=== PATIENT | female | born 1990 | race Caucasian/White ===

== ENCOUNTER 2018-05-02 22:30 | Emergency (ER) | payer SELFPAY ==
[~2018-05-02] VITALS: Ht 154.9 cm; Wt 50.8 kg
[2018-05-02 22:34] VITALS: Ht 154.9 cm; Wt 50.8 kg
[2018-05-03 00:13] VITALS: BP 140/90
== END 2018-05-03 00:13 | disposition home or self-care (01) ==
LOC: ED 22:30
DX: S60.011A Contusion of right thumb without damage to nail, initial encounter (principal); W22.8XXA Striking against or struck by other objects, initial encounter; Y93.89 Activity, other specified; Y92.89 Other specified places as the place of occurrence of the external cause; Y99.8 Other external cause status
CPT/HCPCS: A4570; Q0092